=== PATIENT | female | born 1995 | race Caucasian/White ===

== ENCOUNTER 2020-01-27 14:39 | Emergency (ER) | payer OTHER, SELFPAY ==
--- NOTE | 2020-01-27 | XR_ITS ---
EXAMINATION: XR CHEST CLINICAL INFORMATION: Syncope COMPARISON: None TECHNIQUE: Frontal view of the chest was obtained. FINDINGS: Cardiac silhouette is normal in size. Lungs are well aerated. No lobar consolidation. No pleural effusion or pneumothorax. IMPRESSION: No acute pulmonary pathology.
--- NOTE | 2020-01-27 | ECG_ITS ---
Test Reason : SEIZURE Blood Pressure : / mmHG Vent. Rate : 085 BPM Atrial Rate : 085 BPM P-R Int : 124 ms QRS Dur : 082 ms QT Int : 358 ms P-R-T Axes : -04 037 034 degrees QTc Int : 426 ms Normal sinus rhythm Normal ECG No previous ECGs available Referred By: Toni Moy Electronically Signed By:NACHO BURGER MD
[2020-01-27 14:44] VITALS: BP 109/49; BP 130/70; PULSE 110; PULSE 120; RESP 16; TEMP 37.4; O2SAT 98; O2SAT 99; BMI 44.4
[2020-01-27 16:52] LABS: MANUAL DIFF FLAG NO
[2020-01-27 16:59] LABS: Basophils Percent Auto 0.2 % (0-2); Eosinophils Absolute Auto 0.1 X10*3/uL (0.0-0.4); Eosinophils Percent Auto 0.7 % (0-4); Hematocrit 41.4 % (37-47); Hemoglobin 13.4 g/dl (12.0-16.0); Imm Gran Abs Auto 0.08 X10*3/uL (0.00-0.03); Imm Gran Pct Auto 0.6 % (0.0-0.4); Lymphocytes Absolute Auto 1.9 X10*3/uL (1.2-4.9); Lymphocytes Percent Auto 15.2 % (20-40); Mean Corpuscular HGB Conc 32.4 g/dl (31.0-35.0); Mean Corpuscular Hemoglobin 29.6 pg (27.0-33.0); Mean Corpuscular Volume 91.4 fL (80-98); Monocytes Absolute Auto 0.7 X10*3/uL (0.1-1.2); Monocytes Percent Auto 5.4 % (2-11); Neutrophils Absolute Auto 9.6 X10*3/uL (2.0-8.3); Neutrophils Percent Auto 77.9 % (45-73); Platelet Count 279 X10*3/uL (160-400); Red Blood Count 4.53 X10*6/uL (4.20-5.50); White Blood Count 12.3 X10*3/uL (4.8-10.8)
--- NOTE | 2020-01-27 17:08 | ED.SYNCOPE ---
HPI - Syncope General Chief Complaint: Seizure <Toni Moy NP - Last Filed: 01/27/20 19:54> Stated Complaint: SEIZURE <Toni Moy NP - Last Filed: 01/27/20 19:54> Time Seen by Provider: 01/27/20 16:04 <Toni Moy NP - Last Filed: 01/27/20 19:54> Source: patient and EMS <Toni Moy NP - Last Filed: 01/27/20 19:54> Mode of arrival: EMS <Toni Moy NP - Last Filed: 01/27/20 19:54> Limitations: no limitations <Toni Moy NP - Last Filed: 01/27/20 19:54> Related Data Home Medications: Previous Rx's Medication Instructions Recorded lorazepam [Ativan] 0.5 mg PO BID PRN #10 tab 01/27/20 <Toni Moy NP - Last Filed: 01/27/20 19:54> Allergies/Adverse Reactions: Allergies Allergy/AdvReac Type Severity Reaction Status Date / Time No Known Allergies Allergy Unverified 01/06/20 19:52 [No Known Allergies*] <Toni Moy NP - Last Filed: 01/27/20 19:54> Review of Systems Review of Systems: Constitutional: No Weight loss, No Fever, No Chills, No Night Sweats, No Fatigue, No Malaise ENT/Mouth: No Hearing loss, No Ear Pain, No Nasal Congestion, No Sinus Pain, No Hoarseness, No sore throat, No Rhinorrhea, No Swallowing Difficulty Eyes: No Eye Pain, No Swelling, No Redness, No Foreign Body, No Discharge, No Vision Changes Cardiovascular: No Chest Pain, No SOB, No Dyspnea on Exertion, No Orthopnea, No Edema, No Palpitations Respiratory: No Cough, No Sputum, No Wheezing, No Smoke Exposure, No Dyspnea Gastrointestinal: No Nausea, No Vomiting, No Diarrhea, No Constipation, No abdominal Pain, No Hematochezia, No Melena Genitourinary: no irregular bleeding, No Dysuria, No Urinary Frequency, No Hematuria, No Urinary Incontinence, No Urgency, No Flank Pain, No Urinary Flow Changes, No Hesitancy Musculoskeletal: No joint pain, No Myalgias, No Joint Swelling Skin: No Skin Lesions, No rash Neuro: No Weakness, No Numbness, No Paresthesias, No Loss of Consciousness, No Dizziness, No Headache Psych: No Anxiety/Panic, No Depression, No SI/HI/AH/VH, No Social Issues, Heme/Lymph: No Bruising, No Bleeding,No Lymphadenopathy Endocrine: No Polyuria, No Polydipsia, No Temperature Intolerance <Toni Moy NP - Last Filed: 01/27/20 19:54> [facility] Past Medical History Attestation statement: The following information was validated with the patient. <Toni Moy NP - Last Filed: 01/27/20 19:54> Medical History: Medical History (Updated 01/27/20 @ 19:44 by Toni Moy NP) Depression ETOH abuse Seizure <Toni Moy NP - Last Filed: 01/27/20 19:54> Social History Social History: Social History Alcohol intake: current Smoking Status: Current every day smoker Use of substances other than those prescribed or required for medical reasons: Yes Substance Use Type: Marijuana Advance Directives: No Advance Directives Information Provided: No <Toni Moy NP - Last Filed: 01/27/20 19:54> Physical Exam Vital Signs and I&O and Narrative: Vital Signs and I&O: Vital Signs Temp 97.8 F 01/27/20 19:47 Pulse 82 01/27/20 19:47 Resp 18 01/27/20 19:47 BP 103/53 L 01/27/20 19:47 Pulse Ox 99 01/27/20 19:47 Intake & Output 01/27/20 01/27/20 01/28/20 06:59 18:59 06:59 Weight 124.738 kg Body Mass Index 44.4 <Toni Moy NP - Last Filed: 01/27/20 19:54> Vital Signs and I&O: Vital Signs Temp 97.8 F 01/27/20 19:47 Pulse 82 01/27/20 19:47 Resp 18 01/27/20 19:47 BP 103/53 L 01/27/20 19:47 Pulse Ox 99 01/27/20 19:47 Intake & Output 01/27/20 01/27/20 01/28/20 06:59 18:59 06:59 Weight 124.738 kg Body Mass Index 44.4 <DO Mary Heller Last Filed: 01/27/20 23:03> Const: General: cooperative and healthy appearing; No acute distress or intoxicated appearing <[facility] - Last Filed: 01/27/20 19:54> Nutritional Appearance: average body habitus [facility] Last Filed: 01/27/20 19:54> Orientation/consciousness: patient oriented x3 <[facility] - Last Filed: 01/27/20 19:54> HENMT: Head: Yes normal to inspection <[facility] - Last Filed: 01/27/20 19:54> Ears: hearing grossly normal bilaterally <[facility] - Last Filed: 01/27/20 19:54> Eyes: General: appearance normal, both eyes and all related structures <[facility] - Last Filed: 01/27/20 19:54> Visual Her: normal visual her by confrontation <[facility] - Last Filed: 01/27/20 19:54> Neck: Neck: Yes normal visual inspection, No positive Brudzinski's sign, No positive Kernig's sign and No tender <[facility] - Last Filed: 01/27/20 19:54> Thyroid: Thyroid normal <[facility] - Last Filed: 01/27/20 19:54> Chest: Chest palpation & inspection: normal inspection of the chest <[facility] - Last Filed: 01/27/20 19:54> Resp: Effort & Inspection: normal respiratory effort <[facility] - Last Filed: 01/27/20 19:54> Cardio: Jugular venous distension: no JVD <[facility] - Last Filed: 01/27/20 19:54> GI: Inspection: Yes normal to inspection <[facility] - Last Filed: 01/27/20 19:54> Percussion: Yes normal to percussion <[facility] - Last Filed: 01/27/20 19:54> Auscultation: normal bowel sounds <[facility] - Last Filed: 01/27/20 19:54> : General: Yes no CVA tenderness <[facility] - Last Filed: 01/27/20 19:54> Back/Spine/Pelvis: Back: no CVA tenderness <Toni RICHARD Moy - Last Filed: 01/27/20 19:54> Skin: General skin exam: no rashes or lesions noted <Toni HarveyRICHARD cho - Last Filed: 01/27/20 19:54> Neuro: General: patient oriented x3 <Toninazario Moy NP - Last Filed: 01/27/20 19:54> Extrem: General: Yes normal to inspection <Toni RICHARD Moy - Last Filed: 01/27/20 19:54> Course Course Course Narrative: Patient has been resting comfortably in no acute distress. No further such activity. Orthostatic vital signs are stable. Lab work essentially unremarkable. Did have a CT scan less than a month ago here at this facility of her brain which was unremarkable. At this time will defer any further imaging. Given the stable examination no focal neurological findings she will need to follow up with Neurology. She is agreeable with this. At this time will defer on any medications for epilepsy As story is more consistent with syncope and less likely seizure. Will discharge home with precautions, no driving and swimming. She is agreeable plan. Stable for discharge. Patient has been in our room went to the bathroom and steady gait. <Toni MoyRICHARD cho - Last Filed: 01/27/20 19:54> MDM - Syncope MDM Narrative Medical decision making narrative: This is a 24-year-old female with history of asthma and occasional marijuana, alcohol and cocaine use most recently used 3 days ago presenting via EMS from work with complaint of syncopal episode. States she was at work where she was for all day today standing for prolonged period time and working hot environment. 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 She otherwise denies any recent illness. No pain. No head or neck injury. No back injury. No recent illness. No seizure medications. States this has happened to her now twice in the past most recently seen here a month ago and previous to this 3 years ago she was supposed to follow-up with neurology but never did so. Upon arrival exam is benign. She is alert and oriented x3. On her phone in no acute distress. At this time will initiate workup check for electrolyte derangement, EKG and enzymes. She is normal sinus rhythm on bedside monitor. No ectopy. She is hemodynamically stable. Differential diagnosis include but not limited to vasovagal syncope can syncope due to prolonged standing, orthostatic hypertension, arrhythmia, acute intracranial process less likely, seizure disorder, epilepsy. <Toni Moy NP - Last Filed: 01/27/20 19:54> Differential Diagnosis Differential diagnosis: Likely syncope due to orthostatic hypotension, vasovagal syncope and dehydration; Unlikely complete atrioventricular block, subarachnoid hemorrhage and pulmonary embolism <Toni Moy NP - Last Filed: 01/27/20 19:54> Lab Data Result diagrams: : 01/27/20 16:45 01/27/20 16:45 <Toni Moy NP - Last Filed: 01/27/20 19:54> Labs: Lab Results 01/27/20 01/27/20 01/27/20 Range/Units 16:45 16:45 16:45 WBC 12.3 H (4.8-10.8) X10*3/uL RBC 4.53 (4.20-5.50) X10*6/uL Hgb 13.4 (12.0-16.0) g/dl Hct 41.4 (37-47) % MCV 91.4 (80-98) fL MCH 29.6 (27.0-33.0) pg MCHC 32.4 (31.0-35.0) g/dl RDW 13.0 (11.0-16.0) % Plt Count 279 (160-400) X10*3/uL MPV 10.0 (9.4-12.3) fL Immature Gran % (Auto) 0.6 H (0.0-0.4) % Neut % (Auto) 77.9 H (45-73) % Lymph % (Auto) 15.2 L (20-40) % Faulk % (Auto) 5.4 (2-11) % Eos % (Auto) 0.7 (0-4) % Baso % (Auto) 0.2 (0-2) % Lymph # (Auto) 1.9 (1.2-4.9) X10*3/uL Faulk # (Auto) 0.7 (0.1-1.2) X10*3/uL Eos # (Auto) 0.1 (0.0-0.4) X10*3/uL Baso # (Auto) 0.0 (0.0-0.2) X10*3/uL Abs Immat Gran (auto) 0.08 H (0.00-0.03) X10*3/uL Absolute Neuts (auto) 9.6 H (2.0-8.3) X10*3/uL Absolute Nucleated RBC 0.000 (0.0-0.012) X10*3/uL Nucleated RBC % (auto) 0.0 (0.0-0.2) /100WBC Sodium 141 (135-145) mmol/L Potassium 5.1 (3.3-5.1) mmol/l Chloride 106 (96-108) mmol/L Carbon Dioxide 27 (22-29) mmol/L Anion Gap 13 (12-20) BUN 8 L (9-16) mg/dL Creatinine 0.96 (0.5-1.4) mg/dL Estim Creat Clear Calc 124.0 Estimated GFR > 60 POC Glucose (60-115) mg/dL Random Glucose 106 (60-115) mg/dL Calcium 9.4 (8.4-10.2) mg/dL Magnesium 1.9 (1.6-2.6) mg/dL Total Bilirubin 0.5 (0.0-1.0) mg/dL AST 32 H (5-31) U/L ALT 45 H (0-31) U/L Alkaline Phosphatase 76 (39-117) U/L Total Creatine Kinase 93 (26-140) U/L Troponin I High Sens < 3.5 (<3.5-17.0) ng/L Total Protein 7.6 (6.5-8.0) g/dL Albumin 4.5 (3.5-5.0) g/dL Urine Color Urine Appearance Urine pH (5.0-8.0) Ur Specific Mershon (1.005-1.025) Urine Protein (NEG-TRACE) MG/DL Urine Glucose (UA) (NEG) MG/DL Urine Ketones (NEG) MG/DL Urine Blood (NEG) Urine Nitrite (NEG) Ur Leukocyte Esterase (NEG) Urine RBC (0) /HPF Urine WBC (0-4) /HPF Ur Squamous Epith Cells /LPF Urine Bacteria /LPF Urine Test (NEGATIVE) Urine Opiates Screen (Not Detect) Ur Barbiturates Screen (Not Detect) Ur Phencyclidine Scrn (Not Detect) Ur Amphetamines Screen (Not Detect) U Benzodiazepines Scrn (Not Detect) Urine Cocaine Screen (Not Detect) U Marijuana (THC) Screen (Not Detect) 01/27/20 01/27/20 01/27/20 Range/Units 18:19 18:19 19:44 WBC (4.8-10.8) X10*3/uL RBC (4.20-5.50) X10*6/uL Hgb (12.0-16.0) g/dl Hct (37-47) % MCV (80-98) fL MCH (27.0-33.0) pg MCHC (31.0-35.0) g/dl RDW (11.0-16.0) % Plt Count (160-400) X10*3/uL MPV (9.4-12.3) fL Immature Gran % (Auto) (0.0-0.4) % Neut % (Auto) (45-73) % Lymph % (Auto) (20-40) % Faulk % (Auto) (2-11) % Eos % (Auto) (0-4) % Baso % (Auto) (0-2) % Lymph # (Auto) (1.2-4.9) X10*3/uL Faulk # (Auto) (0.1-1.2) X10*3/uL Eos # (Auto) (0.0-0.4) X10*3/uL Baso # (Auto) (0.0-0.2) X10*3/uL Abs Immat Gran (auto) (0.00-0.03) X10*3/uL Absolute Neuts (auto) (2.0-8.3) X10*3/uL Absolute Nucleated RBC (0.0-0.012) X10*3/uL Nucleated RBC % (auto) (0.0-0.2) /100WBC Sodium (135-145) mmol/L Potassium (3.3-5.1) mmol/l Chloride (96-108) mmol/L Carbon Dioxide (22-29) mmol/L Anion Gap (12-20) BUN (9-16) mg/dL Creatinine (0.5-1.4) mg/dL Estim Creat Clear Calc Estimated GFR POC Glucose 79 (60-115) mg/dL Random Glucose (60-115) mg/dL Calcium (8.4-10.2) mg/dL Magnesium (1.6-2.6) mg/dL Total Bilirubin (0.0-1.0) mg/dL AST (5-31) U/L ALT (0-31) U/L Alkaline Phosphatase (39-117) U/L Total Creatine Kinase (26-140) U/L Troponin I High Sens (<3.5-17.0) ng/L Total Protein (6.5-8.0) g/dL Albumin (3.5-5.0) g/dL Urine Color YELLOW Urine Appearance CLOUDY Urine pH 7.5 (5.0-8.0) Ur Specific Mershon 1.015 (1.005-1.025) Urine Protein TRACE (NEG-TRACE) MG/DL Urine Glucose (UA) NEG (NEG) MG/DL Urine Ketones NEG (NEG) MG/DL Urine Blood NEG (NEG) Urine Nitrite NEG (NEG) Ur Leukocyte Esterase TRACE H (NEG) Urine RBC 0 (0) /HPF Urine WBC 5-9 H (0-4) /HPF Ur Squamous Epith Cells 4+ /LPF Urine Bacteria TRACE /LPF Urine Test NEGATIVE (NEGATIVE) Urine Opiates Screen Not Detected (Not Detect) Ur Barbiturates Screen Not Detected (Not Detect) Ur Phencyclidine Scrn Not Detected (Not Detect) Ur Amphetamines Screen Not Detected (Not Detect) U Benzodiazepines Scrn Not Detected (Not Detect) Urine Cocaine Screen POSITIVE H (Not Detect) U Marijuana (THC) Screen POSITIVE H (Not Detect) <Toni Moy NP - Last Filed: 01/27/20 19:54> Lab Results 01/27/20 01/27/20 01/27/20 Range/Units 16:45 16:45 16:45 WBC 12.3 H (4.8-10.8) X10*3/uL RBC 4.53 (4.20-5.50) X10*6/uL Hgb 13.4 (12.0-16.0) g/dl Hct 41.4 (37-47) % MCV 91.4 (80-98) fL MCH 29.6 (27.0-33.0) pg MCHC 32.4 (31.0-35.0) g/dl RDW 13.0 (11.0-16.0) % Plt Count 279 (160-400) X10*3/uL MPV 10.0 (9.4-12.3) fL Immature Gran % (Auto) 0.6 H (0.0-0.4) % Neut % (Auto) 77.9 H (45-73) % Lymph % (Auto) 15.2 L (20-40) % Faulk % (Auto) 5.4 (2-11) % Eos % (Auto) 0.7 (0-4) % Baso % (Auto) 0.2 (0-2) % Lymph # (Auto) 1.9 (1.2-4.9) X10*3/uL Faulk # (Auto) 0.7 (0.1-1.2) X10*3/uL Eos # (Auto) 0.1 (0.0-0.4) X10*3/uL Baso # (Auto) 0.0 (0.0-0.2) X10*3/uL Abs Immat Gran (auto) 0.08 H (0.00-0.03) X10*3/uL Absolute Neuts (auto) 9.6 H (2.0-8.3) X10*3/uL Absolute Nucleated RBC 0.000 (0.0-0.012) X10*3/uL Nucleated RBC % (auto) 0.0 (0.0-0.2) /100WBC Sodium 141 (135-145) mmol/L Potassium 5.1 (3.3-5.1) mmol/l Chloride 106 (96-108) mmol/L Carbon Dioxide 27 (22-29) mmol/L Anion Gap 13 (12-20) BUN 8 L (9-16) mg/dL Creatinine 0.96 (0.5-1.4) mg/dL Estim Creat Clear Calc 124.0 Estimated GFR > 60 POC Glucose (60-115) mg/dL Random Glucose 106 (60-115) mg/dL Calcium 9.4 (8.4-10.2) mg/dL Magnesium 1.9 (1.6-2.6) mg/dL Total Bilirubin 0.5 (0.0-1.0) mg/dL AST 32 H (5-31) U/L ALT 45 H (0-31) U/L Alkaline Phosphatase 76 (39-117) U/L Total Creatine Kinase 93 (26-140) U/L Troponin I High Sens < 3.5 (<3.5-17.0) ng/L Total Protein 7.6 (6.5-8.0) g/dL Albumin 4.5 (3.5-5.0) g/dL Urine Color Urine Appearance Urine pH (5.0-8.0) Ur Specific Mershon (1.005-1.025) Urine Protein (NEG-TRACE) MG/DL Urine Glucose (UA) (NEG) MG/DL Urine Ketones (NEG) MG/DL Urine Blood (NEG) Urine Nitrite (NEG) Ur Leukocyte Esterase (NEG) Urine RBC (0) /HPF Urine WBC (0-4) /HPF Ur Squamous Epith Cells /LPF Urine Bacteria /LPF Urine Test (NEGATIVE) Urine Opiates Screen (Not Detect) Ur Barbiturates Screen (Not Detect) Ur Phencyclidine Scrn (Not Detect) Ur Amphetamines Screen (Not Detect) U Benzodiazepines Scrn (Not Detect) Urine Cocaine Screen (Not Detect) U Marijuana (THC) Screen (Not Detect) 01/27/20 01/27/20 01/27/20 Range/Units 18:19 18:19 19:44 WBC (4.8-10.8) X10*3/uL RBC (4.20-5.50) X10*6/uL Hgb (12.0-16.0) g/dl Hct (37-47) % MCV (80-98) fL MCH (27.0-33.0) pg MCHC (31.0-35.0) g/dl RDW (11.0-16.0) % Plt Count (160-400) X10*3/uL MPV (9.4-12.3) fL Immature Gran % (Auto) (0.0-0.4) % Neut % (Auto) (45-73) % Lymph % (Auto) (20-40) % Faulk % (Auto) (2-11) % Eos % (Auto) (0-4) % Baso % (Auto) (0-2) % Lymph # (Auto) (1.2-4.9) X10*3/uL Faulk # (Auto) (0.1-1.2) X10*3/uL Eos # (Auto) (0.0-0.4) X10*3/uL Baso # (Auto) (0.0-0.2) X10*3/uL Abs Immat Gran (auto) (0.00-0.03) X10*3/uL Absolute Neuts (auto) (2.0-8.3) X10*3/uL Absolute Nucleated RBC (0.0-0.012) X10*3/uL Nucleated RBC % (auto) (0.0-0.2) /100WBC Sodium (135-145) mmol/L Potassium (3.3-5.1) mmol/l Chloride (96-108) mmol/L Carbon Dioxide (22-29) mmol/L Anion Gap (12-20) BUN (9-16) mg/dL Creatinine (0.5-1.4) mg/dL Estim Creat Clear Calc Estimated GFR POC Glucose 79 (60-115) mg/dL Random Glucose (60-115) mg/dL Calcium (8.4-10.2) mg/dL Magnesium (1.6-2.6) mg/dL Total Bilirubin (0.0-1.0) mg/dL AST (5-31) U/L ALT (0-31) U/L Alkaline Phosphatase (39-117) U/L Total Creatine Kinase (26-140) U/L Troponin I High Sens (<3.5-17.0) ng/L Total Protein (6.5-8.0) g/dL Albumin (3.5-5.0) g/dL Urine Color YELLOW Urine Appearance CLOUDY Urine pH 7.5 (5.0-8.0) Ur Specific Mershon 1.015 (1.005-1.025) Urine Protein TRACE (NEG-TRACE) MG/DL Urine Glucose (UA) NEG (NEG) MG/DL Urine Ketones NEG (NEG) MG/DL Urine Blood NEG (NEG) Urine Nitrite NEG (NEG) Ur Leukocyte Esterase TRACE H (NEG) Urine RBC 0 (0) /HPF Urine WBC 5-9 H (0-4) /HPF Ur Squamous Epith Cells 4+ /LPF Urine Bacteria TRACE /LPF Urine Test NEGATIVE (NEGATIVE) Urine Opiates Screen Not Detected (Not Detect) Ur Barbiturates Screen Not Detected (Not Detect) Ur Phencyclidine Scrn Not Detected (Not Detect) Ur Amphetamines Screen Not Detected (Not Detect) U Benzodiazepines Scrn Not Detected (Not Detect) Urine Cocaine Screen POSITIVE H (Not Detect) U Marijuana (THC) Screen POSITIVE H (Not Detect) <Mike Shafer DO - Last Filed: 01/27/20 23:03> Imaging Data Chest x-ray: Radiologist's impression: Ayah Fallon 24 F 1995 [place] [id number] XRay Report Signed Patient: Cece FallonR#: [id number] : 1995Acct:[id number] Age/Sex: 24 / FADM Date: 01/27/20 Loc: HO.ED Attending Dr: Ordering Physician: Toni Moy NP Date of Service: 01/27/20 Procedure(s): XR chest 1V Accession Number(s): [id number] cc: Toni Moy NP~ EXAMINATION: XR CHEST CLINICAL INFORMATION: Syncope COMPARISON: None TECHNIQUE: Frontal view of the chest was obtained. FINDINGS: Cardiac silhouette is normal in size. Lungs are well aerated. No lobar consolidation. No pleural effusion or pneumothorax. IMPRESSION: No acute pulmonary pathology. Dictated By:CHRISTIAN MITCHELL MD Signed By:<Electronically signed by CHRISTIAN MITCHELL MD in OV>01/27/20 1640 DD/ 1620 TD/TT: Client Server Programmer: PD <Toni Moy NP - Last Filed: 01/27/20 19:54> ECG Data Interpretation: Normal sinus rhythm, no ectopy, rate 85, no ST changes. No previous. <RICHARD Stoll Last Filed: 01/27/20 19:54> Discharge Plan Discharge Clinical Impression: Generalized seizure, Syncope and collapse <Toni Moy NP - Last Filed: 01/27/20 19:54> Patient Disposition: Home, Self-Care <Toni Moy NP - Last Filed: 01/27/20 19:54> Instructions: Syncope (ED), Generalized Tonic Clonic Seizures (ED) <Toni Moy NP - Last Filed: 01/27/20 19:54> Additional Instructions: please follow-up with Neurology as discussed Rest Drink plenty fluids No strenuous activity No alcohol No drugs No driving until you are cleared by neurology No swimming until you are cleared by neurology Return if any concerns or worsening symptoms Also schedule follow-up appoint with her primary care doctor Thank you <Toni Moy NP - Last Filed: 01/27/20 19:54> Prescriptions: New lorazepam [Ativan] 0.5 mg tablet 0.5 mg PO BID PRN (Reason: anxiety) Qty: 10 RF: 0 <Toni Moy NP - Last Filed: 01/27/20 19:54> Referrals: Felix Fernández MD [Physician] - 2 days <Toni Moy NP - Last Filed: 01/27/20 19:54> Interventions: ED Discharge Assessment Last Done: 01/27/20 19:54 <Toni Moy NP - Last Filed: 01/27/20 19:54> Discharge Date/Time: 01/27/20 19:56 <Toni Moy NP - Last Filed: 01/27/20 19:54>
[2020-01-27 17:18] LABS: Alanine Aminotransferase 45 U/L (0-31); Albumin Level 4.5 g/dL (3.5-5.0); Alkaline Phosphatase 76 U/L (39-117); Anion Gap 13 (12-20); Aspartate Amino Transferase 32 U/L (5-31); Bilirubin Total 0.5 mg/dL (0.0-1.0); Blood Urea Nitrogen 8 mg/dL (9-16); Calcium 9.4 mg/dL (8.4-10.2); Carbon Dioxide 27 mmol/L (22-29); Chloride 106 mmol/L (96-108); Estimated Glomerular Filt Rate > 60; Glucose Random 106 mg/dL (60-115); Magnesium 1.9 mg/dL (1.6-2.6); Potassium 5.1 mmol/l (3.3-5.1); Sodium 141 mmol/L (135-145); Total Protein 7.6 g/dL (6.5-8.0)
[2020-01-27 17:24] LABS: Troponin-I High Sensitivity < 3.5 ng/L (<3.5-17.0)
[2020-01-27 18:20] VITALS: BP 102/52; PULSE 87; RESP 16; O2SAT 98
[2020-01-27 18:28] LABS: Glucose Urine UA NEG (NEG); Leukocyte Esterase Urine TRACE (NEG); Nitrite Urine NEG (NEG); PH 7.5 (5.0-8.0); Specific Gravity - Urine 1.015 (1.005-1.025); Urine Blood NEG (NEG); Urine Ketones NEG (NEG); Urine Protein TRACE MG/DL (NEG-TRACE)
[2020-01-27 18:32] LABS: Appearance Urine CLOUDY; Color Urine YELLOW
[2020-01-27 18:34] LABS: UPreg QC Valid YES; Urine Pregnancy NEGATIVE (NEGATIVE)
[2020-01-27 18:41] LABS: Bacteria Urine TRACE /LPF; RBC Urine 0 /HPF (0); Squamous Epithelial Cell Urine 4+ /LPF
[2020-01-27 19:11] LABS: Amphetamine Screen Urine Not Detected (Not Detect); Barbiturates, Urine Not Detected (Not Detect); Benzodiazepines Screen Urine Not Detected (Not Detect); Cannabinoid Screen Urine POSITIVE (Not Detect); Cocaine Screen Urine POSITIVE (Not Detect); Opiate Screen Urine Not Detected (Not Detect); Phencyclidine Screen Urine Not Detected (Not Detect)
[2020-01-27 19:47] VITALS: BP 103/53; PULSE 82; RESP 18; TEMP 36.6; O2SAT 99
[2020-01-27 20:09] LABS: Glucose, Whole Blood 79 mg/dL (60-115)
== END 2020-01-27 19:56 | disposition home or self-care (01) ==
PROVIDERS: Nurse Practitioner Primary Care; Emergency Provider Emergency Medicine
DX: G40.409 Other generalized epilepsy and epileptic syndromes, not intractable, without status epilepticus (principal); R55 Syncope and collapse; F10.10 Alcohol abuse, uncomplicated; F14.90 Cocaine use, unspecified, uncomplicated; F12.90 Cannabis use, unspecified, uncomplicated; F17.200 Nicotine dependence, unspecified, uncomplicated; Z79.899 Other long term (current) drug therapy
CPT/HCPCS: 36415; 71045; 80053; 80307; 81001; 81025; 82550; 82947; 83735; 84484; 85025; 93005; 99283; 99284